=== PATIENT | male | born 1965 | race Caucasian/White ===

== ENCOUNTER 2024-09-16 01:17 | Inpatient (IN) | payer BC, MEDICARE, MEDICAID ==
[2024-09-16] VITALS (31 sets, daily range): BP systolic 118–164; BP diastolic 34–84; PULSE 53–74; RESP 16–26; O2SAT 91–94
[~2024-09-16] VITALS: Ht 185.4 cm; Wt 142.3 kg
--- NOTE | 2024-09-16 01:35 | Physician Documentation ---
History of Present Illness ~ Stated Complaint: RESPIRATORY FAILURE Time Seen by MD: 01:26 HPI Patient presents to the emergency room as a transfer from [facility]. Patient was found down by his brother. His a proximally 10 days ago and he was seen recently at [facility] and was placed on BiPAP and was able to metabolize and discharged. This time Narcan was administered and they were unable to wean him off of BiPAP therefore he was intubated. It is unknown if this is intentional overdose or not. He has multiple pain medications prescribed to him. Medication Reconciliation Allergies: Coded Allergies: Penicillins (Unverified Allergy, Severe, anaphylactic shock, 09/16/24) anaphylactic shock cefaclor (Unverified Allergy, Unknown, rash, 09/16/24) cephalexin (Unverified Allergy, Unknown, rash, 09/16/24) gabapentin (Unverified Allergy, Unknown, urinary retention, 09/16/24) ketamine (Unverified Allergy, Unknown, respiratory depression, 09/16/24) propofol (Unverified Allergy, Unknown, vomiting,combativeness,hallucinations, 09/16/24) Uncoded Allergies: MUSHROOMS (Allergy, Unknown, rash, 09/16/24) Review of Systems ROS All review of systems negative except as per HPI Physical Exam Vital Signs: Weight: 136.000 Physical Exam General: Patient is intubated and sedated Head: Normocephalic and atraumatic. Eyes: Conjunctival normal. EOMI. PERRL. ENT: Mucous membranes moist. Neck: Supple, trachea is midline. Chest: Clear to auscultation bilaterally without rales, rhonchi, or wheezes. There is no accessory muscle use or retractions. Cardiac: RRR without murmurs, gallops, or rubs. Abd: Soft, nondistended, nontender, with normoactive bowel sounds. No guarding, rebound, or rigidity. Progress Results/Orders Results/Orders Orders - SILVIO ROMAN MD Monitor (09/16/24 01:20) Saline Lock (09/16/24 01:20) Oxygen (09/16/24 01:20) Cbc/Diff (09/16/24 01:20) BMP (09/16/24 01:20) PBNP (09/16/24 01:20) Hs Troponin I W Calculations (09/16/24 01:20) Hs Troponin I W Calculations (09/16/24 03:20) Hs Troponin I W Calculations (09/16/24 04:20) * Gastric/Insert Tube* ONCE (09/16/24 01:22) Non-Behavioral Restraints (09/16/24 ) * (A) Cardoso- Protocol * Q12H@07,19 (09/16/24 01:22) Abg (Arterial Blood Gas) (09/16/24 ) Ventilator Settings (09/16/24 ) Cult Sputum + Gram Stain (09/16/24 01:40) Chest,Single View (09/16/24 01:35) Propofol 1000mg/100ml Bottle (Diprivan I (09/16/24 01:35) Triglycerides (09/17/24 03:00) Triglycerides (09/24/24 03:00) Triglycerides (10/01/24 03:00) Triglycerides (10/08/24 03:00) Triglycerides (10/15/24 03:00) Completed Orders - SILVIO ROMAN MD Electrocardiogram (09/16/24 01:20) Vital Signs 09/16/24 01:22 Temp 98.5 Pulse 75 Resp 15 B/P (MAP) 146/84 Pulse Ox 95 O2 Flow Rate 0 EKG/XRAY/CT/US/VASC/MRI EKG : Additional Comment EKG interpreted by myself shows time of 134, rate 66, sinus rhythm, normal axis, no ST changes, noted sinus arrhythmia. Medical Decision Making Findings Patient presents to the emergency room intubated and sedated secondary to respiratory failure. Symptoms are likely secondary to overdose whether this is intentional or not needs to be determined. 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 I provided critical care services, which included medication orders, frequent reevaluations of the patient's condition and response to treatment, ordering and reviewing test results, and discussing the case with various consultants. Excludes time spent performing separately billable procedures. The critical care time associated with the care of the patient was 45 minutes not counting procedures Signature Scribe Signature: No scribe Attestation: The note accurately reflects work and decisions made by me.Silvio Roman MD 09/16/24 01:42 SILVIO ROMAN MD Sep 16, 2024 01:35
--- NOTE | 2024-09-16 01:36 | ELECTROCARDIOGRAPH REPORT ---
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
[2024-09-16] MEDS: propofol 1000mg/100ml bottle 100 ML IV ONE ×2 (01:45→05:09)
--- NOTE | 2024-09-16 02:16 | RADIOLOGY REPORT ---
CHEST RADIOGRAPH Indication: checking of tubes Technique: Single frontal view of the chest was obtained COMPARISON: None FINDINGS: Lines and Tubes: Endotracheal tube tip projects approximately 5 cm above the level of the monico. Ent steve catheter courses below the level of the diaphragm and terminates beyond the inferior margin of t he image within the left upper quadrant. Lungs: Diffuse increased prominence of the pulmonary vasculature and interstitium without evidence of focal consolidation. Pleura: No effusion. No pneumothorax. Cardiomediastinal contours: Cardiomegaly. Bones: Unremarkable. Extensive spinal fixation hardware noted throughout the thoracic and upper lumba r spine. IMPRESSION: 1. Diffuse increased prominence of the pulmonary vasculature and interstitium. 2. Cardiomegaly. 3. Lines and tubes as above.
[2024-09-16 02:17] LABS: TOTAL HEMOGLOBIN 14.3 G/dl (13.5-17.5)
[2024-09-16] MEDS ORDERED: midazolam 100mg in NS 100ml 100 ML IV PRN (02:40)
[2024-09-16] MEDS: LidoCAINE 2% Topical Jelly 11mL syringe (UROJET) TOP ONE (02:50)
[2024-09-16] MEDS ORDERED: ondansetron/PF 4mg/2ml inj IV PRN (02:50)
--- NOTE | 2024-09-16 02:58 | HISTORY AND PHYSICAL ---
History & Physical - Short Providers to CC Altered mental status ~ History of Present Illness Chief Complain & History Altered mental status Allergies: Coded Allergies: Penicillins (Unverified Allergy, Severe, anaphylactic shock, 09/16/24) anaphylactic shock cefaclor (Unverified Allergy, Unknown, rash, 09/16/24) cephalexin (Unverified Allergy, Unknown, rash, 09/16/24) gabapentin (Unverified Allergy, Unknown, urinary retention, 09/16/24) ketamine (Unverified Allergy, Unknown, respiratory depression, 09/16/24) propofol (Unverified Allergy, Unknown, vomiting,combativeness,hallucinations, 09/16/24) Uncoded Allergies: MUSHROOMS (Allergy, Unknown, rash, 09/16/24) Medications NA Exam Vitals: Vital Signs Date Time Temp Pulse Resp B/P (MAP) Pulse Ox O2 Delivery O2 Flow Rate FiO2 09/16/24 02:33 130/81 09/16/24 02:30 63 93 09/16/24 02:22 16 65 09/16/24 01:22 98.5 0 Counseling Services Smoking & Tobacco Cessation: N/A Advance Care Planning Advanced Care planning: N/A Problem\Assessment\Plan Additional Plan Patient presents to the emergency room as a transfer from [facility] [place]. Patient was found down by his brother. His a proximally 10 days ago and he was seen recently at [facility] [place] and was placed on BiPAP and was able to metabolize and discharged. This time Narcan was administered and they were unable to wean him off of BiPAP therefore he was intubated. It is unknown if this is intentional overdose or not. He has multiple pain medications prescribed to him. Impression Altered mental status Acute hypoxic resp failure , requiring mechanical ventilation Plan: Admit to ICU Vent bundle Sedation : propofol Sepsis work up CXR Pych consult when extubated Wean vent as able CT head Poison control in the morning DVT ppx Full code Patient seen and assessed via HIPAA compliant audio visual aid Critical care time 60 mins Dayna Alexandre MD Critical care DAYNA ALEXANDRE MD Sep 16, 2024 02:58
[2024-09-16 03:02] LABS: MEAN PLATELET VOLUME 9.5 FL (7.4-10.4); RED CELL DISTRIBUTION WIDTH 16.8 % (11.5-14.5)
[2024-09-16 03:07] LABS: CREATININE 0.74 MG/DL (0.60-1.10); PRO BRAIN NATRIURETIC PEPTIDE 720 PG/ML (0-125); TOTAL CARBON DIOXIDE 34.1 MMOL/L (24-32); eCRCL 120 ML/MIN; eGFR > 90 ML/MIN
--- NOTE | 2024-09-16 04:35 | RADIOLOGY REPORT ---
EXAM: CT CT HEAD INDICATION: aloc TECHNIQUE: CT of the head without intravenous contrast. Radiation Dose : 1. Head: CT Dose: CTDI volume is 70.71 mGy. Dose-length product is 1332.7 cm mGy*cm The dose indicators for CT are the volume Computed Tomography (CT) Dose Index (CTDIvol) and the Dose Length Product (DLP), and are measured in units of mGy and mGy-cm, respectively. These indicators are not patient dose, but values generated from the CT scanner acquisition factors. The report includes radiation exposure data for exposures received during this examination. COMPARISON: None FINDINGS: There is no evidence of acute intracranial hemorrhage, extra-axial collection, mass effect, midline s hift, herniation or hydrocephalus. Chronic appearing bilateral internal capsule lacunar infarcts. The ventricles, sulci and cisterns are age appropriate. The camara-white differentiation is intact. Pansinusitis. The mastoid air cells are clear. The surrounding soft tissues and osseous structures are unremarkable. Endotracheal and orogastric tubes. IMPRESSION: 1. No acute intracranial abnormality. 2. Chronic appearing bilateral internal capsule lacunar infarcts. Radiation optimization: All CT scans at this facility use at least one of these dose optimization jessica hniques: automated exposure control mA and/or kV adjustment per patient size (includes targeted exam s where dose is matched to clinical indication) or iterative reconstruction.
[2024-09-16 04:44] LABS: PHOSPHORUS 1.1 MG/DL (2.3-4.5)
[2024-09-16] MEDS ORDERED: sodium phosphate inj. 15 MMOL in dextrose 5%-water 250 ML IV PRN (04:50)
[2024-09-16] MEDS ORDERED: potassium Cl 20 mEq SR tablet PO PRN ×2 (04:50)
[2024-09-16] MEDS ORDERED: potassium Cl 40MEQ/1/2NS 520ml 520 ML IV PRN (04:50)
[2024-09-16] MEDS ORDERED: magnesium sulf-water 4G/100mL 100 ML IV PRN (04:50)
[2024-09-16] MEDS: FENTANYL-0.9 % NACL/PF 100 ML IV SCH (04:50)
[2024-09-16] MEDS ORDERED: magnesium sulf-water 2g/50mL 50 ML IV PRN (04:50)
[2024-09-16] MEDS ORDERED: sodium phosphate inj. 30 MMOL in dextrose 5%-water 250 ML IV PRN (04:50)
[2024-09-16] MEDS ORDERED: fentaNYL/PF 50MCG/1 ML 2ML syringe IV PRN (04:50)
[2024-09-16] MEDS: normal saline 1000ml 1,000 ML IV SCH (05:08)
[2024-09-16 05:39] LABS: ABG BASE EXCESS 9.9 mmol/L (-2.0-3.0); ABG HCO3 34.1 mmol/L (21.0-28.0); ABG OXYGEN SATURATION 92.5 % (94.0-98.0); ABG PCO2 (T) 44.4 mmHg (35.0-48.0); ABG PH (T) 7.504 (7.350-7.450); ABG PO2 (T) 59.9 mmHg (83.0-108.0); ALLEN'S TEST Modified; FCOHb 0.9 % (0.5-1.5); FHHb 7.4 % (0.0-5.0); FIO2 65.0 mmHg/%; FMetHb 0.3 % (0.0-1.5); FO2Hb 91.4 % (94.0-98.0); MODE VENT- SIMV VC; PATIENT TEMPERATURE 37.2; PEEP 5 cm H2O; RESPIRATORY RATE 16 b/min; TIDAL VOLUME 525 mL; TOTAL HEMOGLOBIN 14.0 G/dl (13.5-17.5)
[2024-09-16] MEDS ORDERED: potassium phosphate inj 30 MMOL in normal saline 250ml IV soln 500 ML IV ONE (06:15)
[2024-09-16] MEDS: propofol 1000mg/100ml bottle 100 ML IV SCH (06:53)
[2024-09-16] MEDS: magnesium sulf-water 2g/50mL 50 ML IV ONE (07:08)
[2024-09-16] MEDS: furosemide 10 MG/1 ML 10ml inj IV ONE (07:08)
[2024-09-16] MEDS: acetaZOLAMIDE IV 500mg inj IV SCH (07:09)
[2024-09-16] MEDS: K and/or MAG REPLACEMENT MC SCH (07:13)
[2024-09-16] MEDS: potassium phosphate inj 30 MMOL in normal saline 500ml IV soln 500 ML IV ONE (08:47)
[2024-09-16 09:19] LABS: LEUKOCYTE ESTERASE ,URINE NEGATIVE (Neg); NITRITES, URINE NEGATIVE (Neg); OCCULT BLOOD,URINE TRACE-INTACT (Neg)
--- NOTE | 2024-09-16 09:22 | PROGRESS NOTE- Residence ---
Progress Note - Resident Providers to CC Resident Creating Document: CAITLYN ALVA RES ~ Antibiotic Timeout Antibiotic Ordered?: No Subjective 59-year-old male with past medical history of narcotic dependence, obesity, CHRISTIANO, hypertension, hypokalemia admitted for acute metabolic encephalopathy and acute hypoxemic respiratory failure secondary to unintentional opioid overdose which he is on multiple pain medications including narcotics for chronic lower back pain for quite a long time. He is not responding to verbal commands and sedated with fentanyl and propofol. Urine output in the last few hours is more than 3.5 L & he is on negative side of fluid balance which he will be favorable for Objective Vital Signs Date Time Temp Pulse Resp B/P (MAP) Pulse Ox O2 Delivery O2 Flow Rate FiO2 09/16/24 09:00 16 75 09/16/24 08:49 63 92 09/16/24 08:15 118/69 09/16/24 06:00 98.6 Mechanical Ventilator 09/16/24 01:22 0 Result Diagram: 09/16/24 0251 09/16/24 0226 General: Patient is intubated and sedated with propofol & fentanyl. Head: Normocephalic and atraumatic. Eyes: Conjunctival normal. Bilateral pinpoint pupils are noted. Left pupil is sluggishly reacting to light and right pupil is not reacting to light ENT: Mucous membranes moist. Neck: Supple, trachea is midline. Chest: Clear to auscultation bilaterally without rales, rhonchi, or wheezes. There is no accessory muscle use or retractions. Cardiac: RRR without murmurs, gallops, or rubs. Abd: Soft, nondistended, nontender, with normoactive bowel sounds. No guarding, rebound, or rigidity. Extreme : 1+ pedal edema Neurological: Sedated and intubated. Bilateral pinpoint pupils are noted. Advance Care Planning Advanced Care planning: Add on additional 30 min Plan Plan Acute metabolic Encephalopathy Acute Hypoxemic Respiratory Failure Pulmonary edema-ARDS Unintentional Opiod overdose Vitals are stable CBC is okay CMP showed potassium of 3.1, phosphorus 1.1, calcium 8.2, proBNP 720 Urinalysis is normal UA tox is positive for Oxycodone,Opiod,BZDs Chest x-ray showed cardiomegaly with bilateral pulmonary vascular prominence and interstitium suggestive of pulmonary edema Head CT showed chronic bilateral internal capsule lacunar infarcts On mechanical ventilation with SIMV MODE, FiO2 of 75, peep of five Sedated with propofol & fentanyl In view of volume overload, treated with 60 mg one dose of Lasix On acetazolamide 500 mg IV b.i.d. On phosphate and potassium replacement protocol Urine output in the last few hours is more than 3.5 L & he is on negative side of fluid balance helping him to be on dry sided Hypokalemia Hypophosphatemia Primary Metabolic Alkalosis with secondary respiratory alkalosis Potassium is 3.1 on replacing with replacement protocol. Phosphorus 1.1 & replacing per protocol Ordered creatinine kinase and follow up with the results On IV acetazolamide 500 mg b.i.d. Continue to monitor CMP Mild normocytic and normochromic anemia Thrombocytopenia Platelets are low 104 Continue to monitor CBC Narcotic Dependence Psychiatric consultation needed once out of ventilator Chronic Steroid use Restrictive Lung Disease Hypertension Blood pressures are okay on we are monitoring blood pressure with a target of less than 130 and not on any pressors We will do medication reconciliation once medications reviewed , pending medication review. CHRISTIANO On CPAP at home Currently on SIMV mode of mechanical ventilation Moderate Protein malnutrition Hypoalbuminemia Albumin is 2.4 Code status : Full code DVT prophylaxis: Heparin Date of Service: Sep 16, 2024 Billing Provider: STANTON HUNT MD, VENKATESH, RES Sep 16, 2024 09:22
[2024-09-16 09:30] LABS: UA COLLECTION TYPE NON-SPECIFIED
[2024-09-16 09:32] LABS: SQUAMOUS EPITHELIAL CELL,UR NONE SEEN /LPF (FEW); URINE AMPHETAMINE SCREEN NEGATIVE (Neg); URINE BARBITUATE SCREEN NEGATIVE (Neg); URINE BENZODIAZEPINES SCREEN POSITIVE (Neg); URINE COCAINE SCREEN NEGATIVE (Neg); URINE METHADONE SCREEN NEGATIVE (Neg); URINE OPIATE SCREEN POSITIVE (Neg); URINE PHENCYCLIDINE SCREEN NEGATIVE (Neg)
--- NOTE | 2024-09-16 10:05 | CONSULTATION REPORT ---
Consult Providers to CC ~ History of Present Illness Reason for Admit\Complaint: Acute respiratory failure History of Present Illness Ishan Galindo is a 59-year-old male with past medical history of restrictive lung disease, chronic narcotic dependence, CHRISTIANO, who was transferred from [facility] after being found down by his brother. Patient was recently admitted to [facility] and was placed on BiPAP. Admission to [facility] this time, Narcan was administered after unknown intentional or unintentional overdose on opioids at home. Nevertheless, they were unable to wean him off of BiPAP therefore patient was intubated. Patient was admitted to [facility] ICU for continued management. Allergies: Coded Allergies: Penicillins (Unverified Allergy, Severe, anaphylactic shock, 09/16/24) anaphylactic shock cefaclor (Unverified Allergy, Unknown, rash, 09/16/24) cephalexin (Unverified Allergy, Unknown, rash, 09/16/24) gabapentin (Unverified Allergy, Unknown, urinary retention, 09/16/24) ketamine (Unverified Allergy, Unknown, respiratory depression, 09/16/24) propofol (Unverified Allergy, Unknown, vomiting,combativeness,hallucinations, 09/16/24) Uncoded Allergies: MUSHROOMS (Allergy, Unknown, rash, 09/16/24) Past Medical History Past Medical History Chronic narcotic dependence Chronic steroid use CHRISTIANO Class II obesity Restrictive lung disease Past Surgical History Surgical History Comment Sedated, TAYA Past Social History Social History Comment Sedated, TAYA ROS ROS Sedated, TAYA Exam Vitals: Vital Signs Date Time Temp Pulse Resp B/P (MAP) Pulse Ox O2 Delivery O2 Flow Rate FiO2 09/16/24 09:00 98.6 64 16 118/69 (85) 92 Mechanical Ventilator 75 09/16/24 01:22 0 General: Sedated, intubated HEENT: Normocephalic, PERRLA Neck: Supple, trachea midline, no JVD Chest: Clear to auscultation bilaterally Cardiovascular: RRR, S1&S2 Abdomen: Soft and nontender Extremities: No cyanosis/clubbing/or edema Central Nervous System: Sedated Musculoskeletal: No paraspinal muscle tenderness, no muscle spasm Skin: Warm and intact Diagnostic Data Last Recorded Lab Results: 09/16/24 0251 09/16/24 0226 Additional Plan Assessment Acute metabolic Encephalopathy Acute Hypoxemic Respiratory Failure Acute CHF Vs Pulmonary edema Unintentional Opiod overdose Narcotic Dependence Hypokalemia Hypophosphatemia Metabolic Alkalosis Thrombocytopenia Chronic Steroid use Restrictive Lung Disease Hypertension CHRISTIANO Class II obesity -UDS positive for opiod, BZDs; EKG sinus 66bpm, normal axis, no ST changes Plan -09/16: intubated, continue care in ICU Code status: Full code DVT/VTE Prophylaxis: heparin Date of Service: Sep 16, 2024 Billing Provider: DANA RUVALCABA Common Visit Codes: [id number] INP/OBS CARE (HIGH) DANA RUVALCABA Sep 16, 2024 10:05
[2024-09-16] MEDS ORDERED: DILT120C94 PO (14:57)
[2024-09-16] MEDS ORDERED: TIRZ2.5P3 SQ (14:57)
[2024-09-16] MEDS ORDERED: ALBU18HF2 INH (14:57)
[2024-09-16] MEDS ORDERED: PRED5TAB PO (14:57)
[2024-09-16] MEDS ORDERED: CEFU500T66 PO (14:57)
[2024-09-16] MEDS ORDERED: ASPI-1264 PO (14:57)
[2024-09-16] MEDS ORDERED: TEST200V33 IM (14:57)
[2024-09-16] MEDS ORDERED: ALB0.5UD IH (14:57)
[2024-09-16] MEDS: heparin, porcine 5000 units/ml vial SQ SCH (15:14)
[2024-09-16] MEDS ORDERED: POTA-192 PO (15:15)
[2024-09-16] MEDS ORDERED: LYR25C PO (15:15)
[2024-09-16] MEDS ORDERED: ATOR40TA72 PO (15:15)
[2024-09-16] MEDS ORDERED: METO-539 PO (15:15)
[2024-09-16] MEDS ORDERED: MIRT-88 PO (15:15)
[2024-09-16] MEDS ORDERED: DIVA125T31 PO (15:15)
[2024-09-16] MEDS ORDERED: CITA-311 PO (15:15)
[2024-09-16] MEDS ORDERED: ALLO100T PO (15:15)
[2024-09-16] MEDS ORDERED: LEVO50TA8 PO (15:15)
[2024-09-16] MEDS ORDERED: TORS20TA3 PO (15:15)
[2024-09-16] MEDS ORDERED: BECL10.6 INH (15:15)
[2024-09-16] MEDS ORDERED: TAMS-55 PO (15:15)
[2024-09-16] MEDS ORDERED: LISI20TA28 PO (15:15)
[2024-09-16] MEDS ORDERED: MORP60CA16 PO (15:22)
[2024-09-16] MEDS ORDERED: OXYC-658 PO (15:22)
[2024-09-16 16:55] LABS: CREATININE 0.87 MG/DL (0.60-1.10); PHOSPHORUS 2.8 MG/DL (2.3-4.5); TOTAL CARBON DIOXIDE 32.8 MMOL/L (24-32); eCRCL 102 ML/MIN; eGFR 90 ML/MIN
--- NOTE | 2024-09-16 17:41 | CARDIOLOGY REPORT ---
APPROVED REPORT EXAM: Comprehensive 2D, Doppler, and color-flow Echocardiogram. Patient Location: 2008 Blood Pressure: 118/69 mmHg Heart Rate: 64 bpm Rhythm: NSR Indications Cardiomegaly No pan helper No previous echo 2D Dimensions LA Diam4.2 cm IVSd 1.2 (0.7-1.1cm) LVDd 4.7 cm PWd 1.2 (0.7-1.1cm) IVSs 1.6 (0.8-1.2cm) LVDs 3.2 (2.5-4.0cm) Aortic Root(2D) 3.5 cm PWs 1.7 (0.8-1.2cm) LVOT Diameter 2.06 (1.8-2.4cm) LVEF(%) 60.9 (>50%) Ao Asc Diam.3.09 cmFS (%) 32.5 % SV 62.7 ml CO 4.1 L/min M-Mode Dimensions MV EPSS 0.5 (<0.5cm) Aortic Valve AoV Peak Kel. 168.4 cm/s AoV VTI 30.9 cm AO Peak GR. 11.3 mmHg AO Mean GR. 7 mmHg LVOT VTI 24.51 cm LVOT Peak Kel. 125.6 cm/s JANNIE(VTI)/BSA 2.66 cm2/m2 JANNIE (VTI) 2.66 cm2 Mitral Valve MV E Velocity 84.9 cm/s MV Peak Gr. 3 mmHg MV DECEL TIME 312 ms MV A Velocity 89.9 cm/s MV PHT 68 ms E/A Ratio 0.9 MVA (PHT) 3.24 cm2 MV VMax91.0 cm/s TDI Medial E' P. V 9.59 cm/s E/Medial E' 8.9 Tricuspid Valve TR P. Velocity 282 cm/s RAP ESTIMATE 10 mmHg TR Peak Gr. 32 mmHg RVSP 42 mmHg Pulmonary Vein S1 Velocity 39.5 cm/s D2 Velocity 49.4 cm/s PVa Bfthyhjh43.0 cm/s PVa Tcyyconl144 msec LEFT VENTRICLE Normal LV size and function. Mild concentric hypertrophy. Overall LVEF is 60-65%. RIGHT VENTRICLE RV appears mildly dilated with normal contractility. RVSP is estimated at 42 mmHG. ATRIA Left atrium is mildly dilated. AORTIC VALVE Trileaflet AV appears sclerotic without stenosis. No insufficiency. MITRAL VALVE MV is thickened with mild annular thickening and no stenosis. Trace mitral regurgitation. TRICUSPID VALVE The tricuspid valve is normal in structure. Trace tricuspid regurgitation. PULMONIC VALVE The pulmonary valve is normal in structure. Trace pulmonic regurgitation. GREAT VESSELS The aortic root is normal in size. The ascending aorta is normal in size. IVC is not well visualized. PERICARDIUM There is no pericardial effusion. Other Information Study Quality: Adequate Conclusion Overall LVEF is 60-65%. Normal LV size and function. Mild concentric hypertrophy. RV appears mildly dilated with normal contractility. RVSP is estimated at 42 mmHG. Trileaflet AV appears sclerotic without stenosis. No insufficiency. Trace mitral regurgitation. Trace tricuspid regurgitation. Trace pulmonic regurgitation. There is no pericardial effusion.
[2024-09-16] MEDS: POTASSIUM BICARB 20meq eff tab 20 MEQ TABLET.EFF OGT PRN (19:19)
[2024-09-16] MEDS: magnesium hydroxide 30ml (MOM) UD suspension PO PRN (19:20)
--- NOTE | 2024-09-16 20:42 | PROGRESS NOTE ---
Progress Note Dictate Providers to CC ~ Progress Note: opens eyes, moves all 4 extremities spontaneously. on sedation. Plan: KUB continue trickle feeds continue sedation and pain control SAT and SBT in am continue abx CCT 52 min using HIPPA compliant A/V technology Antibiotic Ordered?: Yes Objective Vitals Vital Signs Date Time Temp Pulse Resp B/P (MAP) Pulse Ox O2 Delivery O2 Flow Rate FiO2 09/16/24 19:23 68 19 91 75 09/16/24 18:00 100.2 154/77 (102) Mechanical Ventilator 09/16/24 01:22 0 Lab Results: 09/16/24 0251 09/16/24 1612 ROBERT SHERIDAN MD Sep 16, 2024 20:42
--- NOTE | 2024-09-16 21:12 | RADIOLOGY REPORT ---
Exam: DI ABDOMEN,SINGLE VIEW(KUB) Indication: constipation Comparison: None Technique: For radiographic views of the abdomen. Findings: Nonspecific bowel-gas pattern. Enteric catheter in satisfactory position. There is no definite evidence for pneumoperitoneum. No abnormal calcifications noted. Thoracolumbar spinal fixation hardware. Impression: Nonspecific bowel-gas pattern. Enteric catheter in satisfactory position.
[2024-09-17] VITALS (33 sets, daily range): BP systolic 122–173; BP diastolic 9–90; PULSE 66–92; RESP 13–28; O2SAT 90–98
[2024-09-17 03:39] LABS: MEAN PLATELET VOLUME 9.3 FL (7.4-10.4); RED CELL DISTRIBUTION WIDTH 17.3 % (11.5-14.5)
[2024-09-17 03:48] LABS: ABG BASE EXCESS 3.0 mmol/L (-2.0-3.0); ABG HCO3 26.3 mmol/L (21.0-28.0); ABG OXYGEN SATURATION 95.1 % (94.0-98.0); ABG PCO2 (T) 38.4 mmHg (35.0-48.0); ABG PH (T) 7.458 (7.350-7.450); ABG PO2 (T) 80.5 mmHg (83.0-108.0); ALLEN'S TEST Modified; FCOHb 1.0 % (0.5-1.5); FHHb 4.8 % (0.0-5.0); FIO2 65.0 mmHg/%; FMetHb 0.3 % (0.0-1.5); FO2Hb 93.9 % (94.0-98.0); MODE PRVC; PATIENT TEMPERATURE 38.3; PEEP 5 cm H2O; RESPIRATORY RATE 16 b/min; TIDAL VOLUME 525 mL; TOTAL HEMOGLOBIN 14.1 G/dl (13.5-17.5)
[2024-09-17 04:01] LABS: CREATININE 0.86 MG/DL (0.60-1.10); PHOSPHORUS 2.6 MG/DL (2.3-4.5); TOTAL CARBON DIOXIDE 27.8 MMOL/L (24-32); eCRCL 103 ML/MIN; eGFR > 90 ML/MIN
--- NOTE | 2024-09-17 05:59 | RADIOLOGY REPORT ---
CHEST RADIOGRAPH Indication: ET Tube PLacement Technique: Single frontal view of the chest was obtained Comparison: DI CHEST,SINGLE VIEW on DOS: 09/16/24 FINDINGS: Lines and Tubes: Endotracheal tube terminates 6.2 cm above the monico. The enteric tube courses below the left hemidiaphragm and the tip extends outside the field of view. Lungs: Hazy bilateral opacities. Pleura: No effusion. No pneumothorax. Cardiomediastinal contours: Cardiomegaly. Bones: No acute osseous abnormality. IMPRESSION: 1. ET tube endotracheal tube terminates 6.2 cm above the monico. 2. Hazy bilateral opacities which may reflect edema or pneumonia.
[2024-09-17] MEDS ORDERED: ipratropium/albuterol 3ml nebule NEB PRN (07:45)
[2024-09-17] MEDS ORDERED: diltiazem CD 120mg capsule (once-daily) PO SCH ×2 (08:00)
[2024-09-17] MEDS ORDERED: metoprolol succinate 25mg (24-HOUR) SR. Tablet PO SCH (08:00)
[2024-09-17] MEDS ORDERED: levoTHYROXINE 25mcg tablet PO SCH (08:00)
[2024-09-17] MEDS: furosemide 10 MG/1 ML 10ml inj IV ONE (08:17)
[2024-09-17] MEDS: mineral oil/petrolatum ophthal oint EACHEYE SCH (08:27)
[2024-09-17] MEDS ORDERED: DOXYCYCLINE 100MG CAPSULE PO SCH (08:30)
--- NOTE | 2024-09-17 08:48 | PROGRESS NOTE- Residence ---
Progress Note - Resident Providers to CC Resident Creating Document: CAITLYN ALVA RES ~ Antibiotic Timeout Antibiotic Ordered?: Yes Subjective Seen and examined the patient at bedside. He is improving with consciousness and responding to verbal commands. He is alert and awake and slowly getting out of sedation. Urine output is more than 6 L so far & he is on negative side of fluid balance of 2271 mL. Pus is coming from finger with pricking for fingerstick glucose testing(per RN). He had a three bowel movements today. Objective Vital Signs Date Time Temp Pulse Resp B/P (MAP) Pulse Ox O2 Delivery O2 Flow Rate FiO2 09/17/24 08:18 69 09/17/24 07:51 55 09/17/24 07:44 27 95 09/17/24 07:00 100.6 147/90 (109) Mechanical Ventilator 09/16/24 01:22 0 Result Diagram: 09/17/2420909/17/240 General: Patient is intubated and sedated with propofol , & fentanyl. Responding to verbal stimuli and alert, awake Head: Normocephalic and atraumatic. Eyes: Conjunctival normal. Bilateral pinpoint pupils are noted. Left pupil is sluggishly reacting to light and right pupil is not reacting to light ENT: Mucous membranes moist. Neck: Supple, trachea is midline. Chest: Clear to auscultation bilaterally without rales, rhonchi, or wheezes. There is no accessory muscle use or retractions. Cardiac: RRR without murmurs, gallops, or rubs. Abd: Soft, nondistended, nontender, with normoactive bowel sounds. No guarding, rebound, or rigidity. Extreme : 1+ pedal edema Neurological: Sedated and intubated. Bilateral pinpoint pupils are noted. Advance Care Planning Advanced Care planning: Add on additional 30 min Plan Plan Acute metabolic Encephalopathy Acute Hypoxemic Respiratory Failure Pulmonary edema-ARDS Unintentional Opiod overdose Aspiration pneumonia Vitals are stable CBC is okay CMP showed potassium of 3.1, phosphorus 1.1, calcium 8.2, proBNP 720 Urinalysis is normal UA tox is positive for Oxycodone,Opiod,BZDs Chest x-ray showed cardiomegaly with bilateral pulmonary vascular prominence and interstitium suggestive of pulmonary edema Head CT showed chronic bilateral internal capsule lacunar infarcts On mechanical ventilation with SIMV MODE, FiO2 of 75, peep of five Sedated with propofol & fentanyl In view of volume overload, treated with 60 mg one dose of Lasix On acetazolamide 500 mg IV b.i.d. On phosphate and potassium replacement protocol Urine output in the last few hours is more than 3.5 L & he is on negative side of fluid balance helping him to be on dry sided On DuoNebs q.4h p.r.n. 09/17/2024 Still mechanically ventilated with FiO2 of 65 and PEEP of 5 and sedated with propofol fentanyl and he is responding to the medical management. Blood pressure is maintaining well without pressor support CBC and CMPs is on better side today except hypokalemia of 2.9. On doxycycline to cover aspiration pneumonia and skin infection. We are planning to extubate today and he is responding. alert and awake Hypokalemia Hypophosphatemia, improved Primary Metabolic Alkalosis with secondary respiratory alkalosis, improving Potassium is 3.1 on replacing with replacement protocol. Phosphorus 1.1 & replacing per protocol Ordered creatinine kinase and follow up with the results On IV acetazolamide 500 mg b.i.d. Continue to monitor CMP 09/17/2024: Potassium is 2.9, still in hypokalemia and we are replacing potassium per protocol Phosphorus is 2.6, improved ABG is okay and improved when compared to the yesterday's ABG, improving. On acetazolamide 500 mg IV b.i.d. Continue to monitor CMP Mild normocytic and normochromic anemia Thrombocytopenia Platelets are low 104 Continue to monitor CBC On 09/17/2024: H&H is stable and platelets are improved, 113 through from 104 Narcotic Dependence Psychiatric consultation needed once out of ventilator Restrictive Lung Disease Chronic Steroid use Continuing home medications of prednisone 5 mg to avoid tertiary adrenal insufficiency secondary to sudden withdrawal of steroid CHRISTIANO On CPAP at home Currently on spontaneous CPAP mode of mechanical ventilation Moderate Protein malnutrition Hypoalbuminemia Albumin is 2.4 Continue tube feeding continued of 25 mL/hour Hypothyroidism Continuing 50 mcg of levothyroxine Order TSH and will follow up with the results AFib Possible CHF Hypertension Blood pressures are okay& we are monitoring blood pressure with a target of less than 130 and not on any pressors We will do medication reconciliation once medications reviewed , pending medication review. Continuing diltiazem 120 mg Q 24 H, metoprolol 25 mg On torsemide 20 mg p.o. daily, lisinopril 20 mg PO HS Received Lasix 60 mg IV Seizure history Continuing Depakote at 250 mg p.o. HS BPH Continuing Tamsulosin 0.4 mg Code status : Full code DVT prophylaxis: Heparin GI prophylaxis: Protonix p.o. Diet: Tube feeding PT: Ordered Prognosis: Guarded Date of Service: Sep 17, 2024 Billing Provider: STANTON HUNT MD, VENKATESH, RES Sep 17, 2024 08:48
--- NOTE | 2024-09-17 10:32 | PROGRESS NOTE ---
Daily Progress Note Providers to CC ~ Antibiotic Timeout Antibiotic Ordered?: Yes Subjective Patient examined at bedside in ICU in am. Sedated, ventilated with FiO2 of 65 and PEEP of 5. Febrile, doxycycline started. Labs unremarkable other than hypokalemia. Objective Vital Signs Date Time Temp Pulse Resp B/P (MAP) Pulse Ox O2 Delivery O2 Flow Rate FiO2 09/17/24 10:00 100.6 77 27 143/79 (100) 90 Mechanical Ventilator 50 09/16/24 01:22 0 Result Diagram: 09/17/2420909/17/24209 Physical Exam General: Generalized weakness, sedated, intubated HEENT: Normocephalic, PERRLA Neck: Supple, trachea midline, no JVD Chest: Clear to auscultation bilaterally Cardiovascular: RRR, S1&S2 GI: Soft and nontender Extremities: No cyanosis/clubbing/or edema REFERRAL AGENT: Sedated Musculoskeletal: No paraspinal muscle tenderness, no muscle spasm Skin: pus from finger Problem\Assessment\Plan Assessment Acute metabolic Encephalopathy Acute Hypoxemic Respiratory Failure ARDS Acute CHF Vs Pulmonary edema Opioid overdose Narcotic Dependence Hypokalemia Hypophosphatemia Metabolic Alkalosis Thrombocytopenia Chronic Steroid use Restrictive Lung Disease Hypertension CHRISTIANO Class II obesity Aspiration pneumonia -UDS positive for opiod, BZDs; EKG sinus 66bpm, normal axis, no ST changes -09/17: abx for aspiration pneumonia and skin infection of finger Plan -09/16: intubated, continue care in ICU Code status: Full code DVT/VTE Prophylaxis: heparin Date of Service: Sep 17, 2024 Billing Provider: DANA RUVLACABA Common Visit Codes: [id number] INP/OBS CARE(HIGH) DANA RUVALCABA Sep 17, 2024 10:32
[2024-09-17] MEDS ORDERED: metoprolol tartrate 12.5mg (1/2 tablet) NG SCH (10:48)
[2024-09-17] MEDS ORDERED: DOXYCYCLINE 100MG CAPSULE OGT SCH (10:51)
[2024-09-17] MEDS ORDERED: levoTHYROXINE 25mcg tablet OGT SCH (10:51)
[2024-09-17] MEDS ORDERED: magnesium hydroxide 30ml (MOM) UD suspension OGT PRN (10:51)
[2024-09-17] MEDS ORDERED: potassium Cl 20 mEq SR tablet OGT PRN (10:52)
[2024-09-17] MEDS ORDERED: diltiazem 30mg tablet NG SCH (11:00)
[2024-09-17] MEDS ORDERED: metoprolol tartrate 12.5mg (1/2 tablet) OGT SCH (11:04)
[2024-09-17] MEDS: potassium Cl 20 mEq SR tablet OGT PRN (11:16)
[2024-09-17] MEDS: diltiazem 30mg tablet OGT SCH (13:24)
[2024-09-17] MEDS ORDERED: magnesium hydroxide 30ml (MOM) UD suspension PO PRN (16:29)
[2024-09-17] MEDS ORDERED: POTASSIUM BICARB 20meq eff tab 20 MEQ TABLET.EFF PO PRN (16:31)
[2024-09-17] MEDS ORDERED: metoprolol tartrate 12.5mg (1/2 tablet) PO SCH (16:31)
[2024-09-17] MEDS ORDERED: morphine ER 15mg tablet PO PRN (16:45)
[2024-09-17] MEDS: DOXYCYCLINE 100MG CAPSULE PO SCH (17:11)
[2024-09-17] MEDS: diltiazem 30mg tablet PO SCH (17:11)
[2024-09-17] MEDS: metoprolol succinate 25mg (24-HOUR) SR. Tablet PO SCH (17:11)
[2024-09-17] MEDS: divalproex 250mg tablet, delayed-release PO SCH (20:01)
[2024-09-17] MEDS: morphine 4 MG/ML inj SYRINge IV PRN (20:03)
[2024-09-18] VITALS (19 sets, daily range): BP systolic 116–158; BP diastolic 56–93; PULSE 67–88; RESP 11–30; TEMP 98–98.3; O2SAT 93–98
[2024-09-18 07:15] LABS: MEAN PLATELET VOLUME 9.1 FL (7.4-10.4); RED CELL DISTRIBUTION WIDTH 16.8 % (11.5-14.5)
[2024-09-18 07:34] LABS: CREATININE 0.84 MG/DL (0.60-1.10); PHOSPHORUS 3.3 MG/DL (2.3-4.5); TOTAL CARBON DIOXIDE 20.8 MMOL/L (24-32); eCRCL 106 ML/MIN; eGFR > 90 ML/MIN
[2024-09-18] MEDS: pantoprazole 40mg Tablet.DR PO SCH (09:21)
[2024-09-18] MEDS: potassium Cl 20 mEq SR tablet PO PRN ×2 (09:25→15:46)
[2024-09-18] MEDS: levoTHYROXINE 25mcg tablet PO SCH (09:27)
[2024-09-18] MEDS: diltiazem CD 120mg capsule (once-daily) PO SCH (09:28)
[2024-09-18] MEDS: morphine sulfate IR 15MG tablet PO PRN (10:11)
--- NOTE | 2024-09-18 11:00 | PROGRESS NOTE- Residence ---
Progress Note - Resident Providers to CC Resident Creating Document: CAITLYN ALVA RES ~ Antibiotic Timeout Antibiotic Ordered?: Yes Subjective Seen and examined the patient at bedside. He is improving and he is giving verbal responses to the questions. He reports that he has implants in the most cervical , thoracolumbar spine and reports moderate pain over the upper and lower back. He is requesting for more pain meds. Objective Vital Signs Date Time Temp Pulse Resp B/P (MAP) Pulse Ox O2 Delivery O2 Flow Rate FiO2 09/18/24 10:11 15 09/18/24 09:27 81 09/18/24 06:00 141/88 (105) 96 Venturi Mask 50 09/18/24 05:00 99.5 09/18/24 02:56 5 Result Diagram: 09/18/24 0659 09/18/24 0659 General: Patient is conscious, alert, awake Responding to verbal stimuli . Extubated Head: Normocephalic and atraumatic. Eyes: Conjunctival normal. Bilateral pinpoint pupils are noted. Left pupil is sluggishly reacting to light and right pupil is not reacting to light ENT: Mucous membranes moist. Neck: Supple, trachea is midline. Chest: Clear to auscultation bilaterally without rales, rhonchi, or wheezes. There is no accessory muscle use or retractions. Cardiac: RRR without murmurs, gallops, or rubs. Abd: Soft, nondistended, nontender, with normoactive bowel sounds. No guarding, rebound, or rigidity. Extreme : 1+ pedal edema Neurological: Sedated and intubated. Bilateral pinpoint pupils are noted. Advance Care Planning Advanced Care planning: Add on additional 30 min Plan Plan Acute metabolic Encephalopathy Acute Hypoxemic Respiratory Failure Pulmonary edema-ARDS Unintentional Opiod overdose Aspiration pneumonia Vitals are stable CBC is okay CMP showed potassium of 3.1, phosphorus 1.1, calcium 8.2, proBNP 720 Urinalysis is normal UA tox is positive for Oxycodone,Opiod,BZDs Chest x-ray showed cardiomegaly with bilateral pulmonary vascular prominence and interstitium suggestive of pulmonary edema Head CT showed chronic bilateral internal capsule lacunar infarcts On mechanical ventilation with SIMV MODE, FiO2 of 75, peep of five Sedated with propofol & fentanyl In view of volume overload, treated with 60 mg one dose of Lasix On acetazolamide 500 mg IV b.i.d. On phosphate and potassium replacement protocol Urine output in the last few hours is more than 3.5 L & he is on negative side of fluid balance helping him to be on dry sided On DuoNebs q.4h p.r.n. 09/17/2024 Still mechanically ventilated with FiO2 of 65 and PEEP of 5 and sedated with propofol fentanyl and he is responding to the medical management. Blood pressure is maintaining well without pressor support CBC and CMPs is on better side today except hypokalemia of 2.9. On doxycycline to cover aspiration pneumonia and skin infection. We are planning to extubate today and he is responding. alert and awake 09/18/2024 Extubated on yesterday. Not on any pressors. He is improving and stable . We will continue doxycycline. Hypokalemia Hypophosphatemia, improved Primary Metabolic Alkalosis with secondary respiratory alkalosis, improving Potassium is 3.1 on replacing with replacement protocol. Phosphorus 1.1 & replacing per protocol Ordered creatinine kinase and follow up with the results On IV acetazolamide 500 mg b.i.d. Continue to monitor CMP 09/17/2024: Potassium is 2.9, still in hypokalemia and we are replacing potassium per protocol Phosphorus is 2.6, improved ABG is okay and improved when compared to the yesterday's ABG, improving. On acetazolamide 500 mg IV b.i.d. Continue to monitor CMP 09/18/2024 Potassium is 2.9& we are replacing per protocol and ABG is looking good. Mild normocytic and normochromic anemia Thrombocytopenia Platelets are low 104 Continue to monitor CBC On 09/17/2024: H&H is stable and platelets are improved, 113 through from 104 09/18/2024: H& H she is stable & platelets are improving to 125. Narcotic Dependence Psychiatric consultation needed once out of ventilator Restrictive Lung Disease Chronic Steroid use Continuing home medications of prednisone 5 mg to avoid tertiary adrenal insufficiency secondary to sudden withdrawal of steroid CHRISTIANO On CPAP at home He needs the CPAP overnight Moderate Protein malnutrition Hypoalbuminemia Albumin is 2.4 Regular diet Hypothyroidism Continuing 50 mcg of levothyroxine Order TSH and will follow up with the results AFib Possible CHF Hypertension Blood pressures are okay& we are monitoring blood pressure with a target of less than 130 and not on any pressors We will do medication reconciliation once medications reviewed , pending medication review. Continuing diltiazem 120 mg Q 24 H, metoprolol 25 mg On torsemide 20 mg p.o. daily, lisinopril 20 mg PO HS Received Lasix 60 mg IV Seizure history Continuing Depakote at 250 mg p.o. HS BPH Continuing Tamsulosin 0.4 mg Code status : Full code DVT prophylaxis: Heparin GI prophylaxis: Protonix p.o. Diet: Regular PT: Ordered Prognosis: Guarded Disposition: Care Transferred to PCU. Needs to address pain medications as he seems to be getting opioid overdose multiple times and frequent ER visits. Caitlyn Alva ICU resident Date of Service: Sep 18, 2024 Billing Provider: STANTON HUNT MD,CAITLYN, RES Sep 18, 2024 11:00
--- NOTE | 2024-09-18 11:17 | PROGRESS NOTE ---
Daily Progress Note Providers to CC ~ Antibiotic Timeout Antibiotic Ordered?: No Subjective Patient examined at bedside in ICU in am. Extubated, venturi mask and now 5L nasal cannula. Vss, labs unremarkable other than hypokalemia. A&Ox3. Denies SI by OD. Transfer to floor today. 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: CN II-XII intact, no focal deficits Musculoskeletal: No paraspinal muscle tenderness, no muscle spasm Skin: pus from finger Problem\Assessment\Plan Assessment Acute metabolic Encephalopathy Acute Hypoxemic Respiratory Failure ARDS Acute CHF Vs Pulmonary edema Opioid overdose Narcotic Dependence Hypokalemia Hypophosphatemia Metabolic Alkalosis Thrombocytopenia Chronic Steroid use Restrictive Lung Disease Hypertension CHRISTIANO Class II obesity Aspiration pneumonia -UDS positive for opiod, BZDs; EKG sinus 66bpm, normal axis, no ST changes -09/17: abx for aspiration pneumonia and skin infection of finger -09/18: extubated, on NC, A&Ox3, denies SI by OD Plan -09/16: intubated, continue care in ICU -09/18: downgrade to floor Code status: Full code DVT/VTE Prophylaxis: heparin Date of Service: Sep 18, 2024 Billing Provider: DANA RUVALCABA Common Visit Codes: [id number] INP/OBS CARE(HIGH) DANA RUVALCABA Sep 18, 2024 11:17
[2024-09-19 05:44] LABS: MEAN PLATELET VOLUME 9.4 FL (7.4-10.4); RED CELL DISTRIBUTION WIDTH 16.7 % (11.5-14.5)
[2024-09-19 05:55] LABS: CREATININE 0.79 MG/DL (0.60-1.10); PHOSPHORUS 3.0 MG/DL (2.3-4.5); TOTAL CARBON DIOXIDE 19.8 MMOL/L (24-32); eCRCL 112 ML/MIN; eGFR > 90 ML/MIN
[2024-09-19 06:24] LABS: EOSINOPHILS % (MANUAL) 2.0 % (0-6); LYMPHOCYTES % (MANUAL) 18.0 % (21-51); MONOCYTES % (MANUAL) 10.0 % (2-12); NEUTROPHILS % (MANUAL) 70.0 % (42-75); PLATELET ESTIMATE NORMAL
[2024-09-19 06:33] VITALS: BP_SYST 130; BP_SYST 143; BP_DIAS 74; BP_DIAS 78; PULSE 70; PULSE 88; RESP 18; RESP 20; TEMP 97.2; TEMP 98; O2SAT 94; O2SAT 96
[2024-09-19] MEDS ORDERED: PANT40TA54 PO (07:29)
[2024-09-19] MEDS ORDERED: LISI20TA28 PO (07:29)
[2024-09-19] MEDS ORDERED: ASPI81TA52 PO (07:29)
[2024-09-19 07:41] VITALS: BP_SYST 130
[2024-09-19 08:00] VITALS: RESP 20
[2024-09-19 08:19] VITALS: PULSE 83; RESP 18; O2SAT 96
[2024-09-19] MEDS ORDERED: LEVO750T68 PO (09:45)
--- NOTE | 2024-09-19 09:50 | DISCHARGE SUMMARY ---
Discharge Summary Providers to CC ~ Discharge Summary Admission Diagnosis: unintentional OD, encephalopathy, hypoxemic respiratory failure Hospital Course DATE OF ADMISSION: 09/16/24 DATE OF DISCHARGE: 09/19/24 Discharge Diagnosis\Comment: Acute metabolic encephalopathy Acute Hypoxemic Respiratory Failure ARDS Aspiration pneumonia Sepsis 2/2 aspiration pneumonia- not POA Chronic diastolic heart failure Opioid overdose, unintentional Narcotic Dependence Chronic pain syndrome Hypokalemia Hypophosphatemia Metabolic Alkalosis Thrombocytopenia Chronic Steroid use Restrictive Lung Disease Hypertension CHRISTIANO Operations\Procedures: Intubation Consultants: Hospitalist service Complications: None Condition on DC: Stable New Medications: Aspirin (Aspirin EC) 81 Mg Tablet.dr 1 TAB PO DAILY for 30 Days, #30 TAB Levofloxacin (Levofloxacin) 750 Mg Tablet 1 TAB PO DAILY for 7 Days, #7 TAB Lisinopril (Lisinopril) 20 Mg Tablet 40 MG PO DAILY for 90 Days, #90 TAB Pantoprazole Sodium (Pantoprazole Sodium) 40 Mg Tablet.dr 40 MG PO BKF for 30 Days, #30 TAB.SR Continued Medications: Albuterol Sulfate (Ventolin Hfa) 90 Mcg Hfa.aer.ad 2 PUFFS INH Q4HPRN PRN for SOB OR WHEEZING, GM 0 Refills Allopurinol* (Allopurinol*) 100 Mg Tablet 3 TAB PO DAILY, TAB Atorvastatin Calcium (Atorvastatin Calcium) 40 Mg Tablet 1 TAB PO DAILY, TAB 0 Refills Beclomethasone Dipropionate (Qvar Redihaler) 40 Mcg/Actuation Hfa.aeroba 1 PUFFS INH BID, GM 0 Refills Cefuroxime Axetil (Cefuroxime) 500 Mg Tablet 1 TAB PO BID for 7 Days, TAB 0 Refills START 09/13 FROM ER FOR 7 DAYS Citalopram Hydrobromide (Celexa) 10 Mg Tablet 1 TAB PO TID, TAB 0 Refills Diltiazem Hcl (Diltiazem 24HR Er) 120 Mg Cap.sr.24h 1 CAP PO DAILY, CAP [address]* (Depakote DR*) 125 Mg Tablet.dr 250 MG PO HS, TAB.SR Levothyroxine Sodium (Levothyroxine Sodium) 50 Mcg Tablet 1 TAB PO DAILY, TAB 0 Refills Lisinopril (Lisinopril) 20 Mg Tablet 1 TAB PO DAILY, TAB Metoprolol Succinate* (Toprol Xl*) 25 Mg Tab.sr.24h 1 TAB PO DAILY, TAB Mirtazapine (Mirtazapine) 30 Mg Tablet 1 TAB PO HS, TAB 0 Refills Potassium Chloride (Klor-Con) 10 Meq Tab.prt.sr 1 TAB PO DAILY, TAB Prednisone* (Prednisone*) 5 Mg Tablet 1 TAB PO DAILY for 30 Days, #30 TAB 0 Refills START /6 FROM ER FOR 30 DAYS Pregabalin* (Lyrica*) 25 Mg Capsule 100 MG PO BID, CAP Tamsulosin Hcl* (Flomax*) 0.4 Mg Cap.sr.24h 1 CAP PO DAILY, CAP Testosterone Cypionate (TESTOSTERONE CYPIONATE 200mg/ml 10ml vial) 200 Mg/Ml Vial 1 ML IM Q7D, ML 0 Refills Tirzepatide (Zepbound) 2.5 Mg/0.5 Ml Pen.injctr 2.5 MG SQ Q7D Torsemide (Torsemide) 20 Mg Tablet 1 TAB PO DAILY, TAB 0 Refills Discontinued Medications: Albuterol Sulfate Nebs* (Proventil Nebs*) 2.5 Mg/0.5 Ml Vial.neb 2.5 MG IH Q6H PRN for WHEEZING, EACH 2.5 MG/3ML Aspirin* (Aspirin*) 325 Mg Tablet 1 TAB PO DAILY PRN for PAIN OR TEMP, TAB Morphine Sulfate ER (Morphine Sulfate ER) 60 Mg Cap.er.pel 1 CAP PO Q6H, CAP LAST PRESCRIBED 01/29/24 AND STILL LISTED ACTIVE MED IN RECENT MD NOTES, JORDEN SWENSON SAID UNABLE TO TELL IF PT STILL USES IT Oxycodone Hcl IR* (Oxycodone IR*) 5 Mg Tablet 30 MG PO Q4H PRN for pain, TAB LAST PRESCRIBED 01/29/24 AND STILL LISTED ACTIVE MED IN RECENT MD NOTES, JORDEN SWENSON SAID UNABLE TO TELL IF PT STILL USES IT Discharge Summary: History of Present Illness Ishan Galindo is a 59-year-old male with past medical history of restrictive lung disease, chronic narcotic dependence, CHRISTIANO, who was transferred from [facility] after being found down by his brother. Patient was recently admitted to [facility] and was placed on BiPAP. Admission to [facility] this time, Narcan was administered after unknown intentional or unintentional overdose on opioids at home. Nevertheless, they were unable to wean him off of BiPAP therefore patient was intubated. Patient was admitted to [facility] ICU for continued management. Hospital Course Patient was successfully extubated and was put on Venturi mask followed by nasal cannula. Patient was subsequently downgraded to the floor and was continued on medical management. Patient had aspiration pneumonia in which was treated with empirical antibiotics. Patient stated unintentional overdose on narcotics at home that he took for chronic pain and denies SI. Patient did not experience further complications throughout the entire hospital stay made a good recovery. Patient was seen and examined on the day of discharge. On day of discharge, vss and labs unremarkable. All labs, diagnostic workups, discharge plan discussed with patient in details during visit before discharge. All questions and concerns answered to the best of my professional knowledge. Patient is to be discharged to home to self and to follow-up with PCP within 2 weeks. Patient is discharged with supplemental oxygen via nasal cannula. Physical Exam General: A&Ox 3, NAD HEENT: Normocephalic, PERRLA Neck: Supple, trachea midline, no JVD Chest: Clear to auscultation bilaterally Cardiovascular: RRR, S1&S2 GI: Soft and nontender Extremities: No cyanosis/clubbing/or edema APPLIER: CN II-XII intact, no focal deficits Musculoskeletal: No paraspinal muscle tenderness, no muscle spasm Skin: Warm and intact *Problems/Diagnosis: (1) Opioid overdose Status: Acute (2) Respiratory failure Status: Acute Total Time Spent on D/C: > 30 Minutes Date of Service: Sep 19, 2024 Billing Provider: DANA RUVALCABA Common Visit Codes: [id number]/[id number] DISCH DAY >30min DANA RUVALCABA Sep 19, 2024 09:50
[2024-09-19 09:53] VITALS: RESP 20
[2024-09-19] MEDS: levoFLOXACIN 750MG TABLET PO ONE (10:02)
[2024-09-20] MEDS ORDERED: levoFLOXACIN 750MG TABLET PO SCH (08:00)
== END 2024-09-19 10:59 | disposition home or self-care (01) | DRG 917 ==
LOC: EDBD 01:19 → ER 01:19 → ED HOLD 02:51 → EDBEDREQTM 03:12 → EDBEDREQ 03:12 → CICU 2S 04:22 → SUR 3N 09-18 13:30
PROVIDERS: ADMIT Internal Medicine Pulmonary Disease; ATTEND Internal Medicine Pulmonary Disease
PROC: 0BH17EZ Insertion of Endotracheal Airway into Trachea, Via Natural or Artificial Opening (ICD-10-PCS; principal; 2024-09-16)
PROC: 5A1945Z Respiratory Ventilation, 24-96 Consecutive Hours (ICD-10-PCS; 2024-09-16)
PROC: 5A0935A Assistance with Respiratory Ventilation, Less than 24 Consecutive Hours, High Flow/Velocity Cannula (ICD-10-PCS; 2024-09-18)
DX: T40.2X1A Poisoning by other opioids, accidental (unintentional), initial encounter (principal); A41.9 Sepsis, unspecified organism; J69.0 Pneumonitis due to inhalation of food and vomit; J80 Acute respiratory distress syndrome; G93.41 Metabolic encephalopathy; E44.0 Moderate protein-calorie malnutrition; F11.20 Opioid dependence, uncomplicated; E87.3 Alkalosis; I50.32 Chronic diastolic (congestive) heart failure; Z68.41 Body mass index [BMI] 40.0-44.9, adult; G47.33 Obstructive sleep apnea (adult) (pediatric); J98.4 Other disorders of lung; E83.39 Other disorders of phosphorus metabolism; E66.812 Obesity, class 2; I11.0 Hypertensive heart disease with heart failure; G89.4 Chronic pain syndrome; E88.09 Other disorders of plasma-protein metabolism, not elsewhere classified; E87.6 Hypokalemia; D69.6 Thrombocytopenia, unspecified; D64.9 Anemia, unspecified; Z88.0 Allergy status to penicillin; Z91.018 Allergy to other foods; Y92.89 Other specified places as the place of occurrence of the external cause; Z79.899 Other long term (current) drug therapy
CPT/HCPCS: 36415; 36600; 43753; 70450; 71045; 74018; 80053; 80305; 81001; 82550; 82803; 82948; 83605; 83735; 83880; 84100; 84132; 84134; 84145; 84443; 84478; 84484; 85007; 85018; 85025; 87040; 87070; 87081; 93005; 93306; 94002; 94003; 94760; 97161; 97530; 99291; A4615; G0378; J1120; J1644; J1938; J2270; J2470; J2704; J3010; J3490; J7030; J7040; J7512